=== PATIENT | male | born 1995 | race Hispanic/Latino ===

== ENCOUNTER 2018-12-01 19:59 | Emergency (ER) | payer BC, OTHER ==
[2018-12-01 20:06] VITALS: BP 141/79; RESP 16; TEMP 98; O2SAT 100
[2018-12-01 21:05] VITALS: PULSE 99
--- NOTE | 2018-12-01 21:42 | ED PDOC ---
HPI: Psych/Substance Abuse Time Seen by Provider: 12/01/18 20:48 Chief Complaint (Nursing): Alcohol Ingestion Chief Complaint (Provider): Alcohol Ingestion History Per: Patient History/Exam Limitations: no limitations Onset/Duration Of Symptoms: Hrs (VAMPER) Current Symptoms Are (Timing): Still Present Modifying Factor(s): Alcohol Additional Complaint(s): 23 year old male brought to the ED for intoxication by [facility]. Patient states he was brought here against his will. He admit to ingesting ETOH but has no medical complaints at this time. PMD: none provided Past Medical History Reviewed: Historical Data, Nursing Documentation, Vital Signs Vital Signs: Last Vital Signs Temp 98.0 F 12/01/18 20:57 Pulse 99 H 12/01/18 20:57 Resp 16 12/01/18 20:57 BP 141/79 12/01/18 20:57 Pulse Ox 100 12/01/18 20:57 - Medical History PMH: No Chronic Diseases - Surgical History Surgical History: No Surg Hx - Family History Family History: States: Unknown Family Hx - Social History Alcohol: Other (yes) - Allergies Allergies/Adverse Reactions: Allergies Allergy/AdvReac Type Severity Reaction Status Date / Time No Known Allergies Allergy Verified 12/01/18 20:06 Review of Systems ROS Statement: Except As Marked, All Systems Reviewed And Found Negative Physical Exam - Reviewed Nursing Documentation Reviewed: Yes Vital Signs Reviewed: Yes - Physical Exam Appears: Positive for: No Acute Distress Head Exam: Positive for: ATRAUMATIC, NORMOCEPHALIC Skin: Positive for: Normal Color, Warm, Dry Eye Exam: Positive for: EOMI, Normal appearance, PERRL ENT: Positive for: Normal ENT Inspection Neurologic/Psych: Positive for: Alert, Oriented, Gait (steady), Other (normal speech) - ECG O2 Sat by Pulse Oximetry: 100 (RA) Pulse Ox Interpretation: Normal Medical Decision Making Medical Decision Making: Time: 2047 Impression: ETOH ingestion Plan: --labs Time: 2056 --patient is declining medical treatment at this time and is stable for discharge home. Scribe Attestation: Documented by Rita Mckeon, acting as a scribe for Keanu Miller MD. Provider Scribe Attestation: All medical record entries made by the Scribe were at my direction and personally dictated by me. I have reviewed the chart and agree that the record accurately reflects my personal performance of the history, physical exam, medical decision making, and the department course for this patient. I have also personally directed, reviewed, and agree with the discharge instructions and disposition. Disposition - Clinical Impression Clinical Impression: Alcohol use - Disposition Disposition Time: 20:57 Condition: STABLE Forms: [email or web address] (Serbian)
== END 2018-12-01 20:58 | disposition home or self-care (01) ==
LOC: H.ER 19:59
DX: F10.10 Alcohol abuse, uncomplicated (principal)